=== PATIENT | female | born 1975 | race Caucasian/White ===

== ENCOUNTER 2016-06-19 13:08 | Emergency (ER) | payer OTHER ==
[2016-06-19 13:53] LABS: BASOPHIL 0.3 % (0-2); HCT 36.2 % (37.0-47.0); HGB 12.6 g/dl (12.5-16.0); LYMPHOCYTE 30.1 % (15-48); MCH 31.7 pg (25.0-31.0); MCHC 34.8 g/dL (32.0-36.0); MCV 91.2 fL (78.0-100.0); MONOCYTE 6.2 % (0-12); MPV 10.8 fL (6.0-9.5); NEUTROPHIL 62.4 % (41-80); PLT 229 K/uL (150-400); RBC 3.97 M/uL (4.20-5.40); RDW 12.6 % (11.5-14.0)
[2016-06-19 13:57] LABS: INR 1.04 (0.9-1.2); PROTHROMBIN TIME 13.2 SECONDS (11.7-14.0); PTT 27.2 SECONDS (23.2-31.4)
[2016-06-19 14:07] LABS: MYOGLOBIN 21 ng/mL (26-65); PRO-BNP 58 pg/mL (0-125); TROPONIN T < 0.010 ng/mL
[2016-06-19 14:10] LABS: ALBUMIN 4.4 g/dL (3.5-5.0); BILIRUBIN - TOTAL 0.3 mg/dL (0.1-1.0); CREATININE 0.6 mg/dL (0.5-1.0); GLOBULIN (CALCULATION) 2.7 g/dL (2.2-4.2); MAGNESIUM 2.04 mg/dL (1.40-2.10); POTASSIUM 3.8 mmol/L (3.5-5.1); TOTAL PROTEIN 7.1 g/dL (6.4-8.3)
== END 2016-06-19 17:24 | disposition home or self-care (01) ==
LOC: FER 13:08
PROVIDERS: Internal Medicine
DX: R07.89 Other chest pain (principal); M79.601 Pain in right arm; Z82.49 Family history of ischemic heart disease and other diseases of the circulatory system
CPT/HCPCS: 36415; 71010; 80053; 82550; 82553; 83735; 83874; 83880; 84443; 84484; 85025; 85610; 85730; 93005

== ENCOUNTER 2020-04-30 02:47 | Day surgery (SDCO) | payer OTHER ==
[2020-04-30 03:17] LABS: BASOPHIL 0.3 % (0-2); EOSINOPHIL 0 % (0-5); HGB 13.8 g/dl (12.5-16.0); LYMPHOCYTE 15.7 % (15-48); MCH 31.3 pg (25.0-31.0); MCHC 35.4 g/dL (32.0-36.0); MCV 88.4 fL (78.0-100.0); MONOCYTE 4.7 % (0-12); MPV 10.6 fL (6.0-9.5); NRBC 0; PLT 133 K/uL (150-400); RBC 4.41 M/uL (4.20-5.40); RDW 11.9 % (11.5-14.0); WBC 3.6 K/uL (4.0-10.5)
[2020-04-30 03:40] LABS: LACTIC ACID 0.8 mmol/L (0.4-1.9)
[2020-04-30 03:49] LABS: ALBUMIN 3.4 g/dL (3.4-5.0); BILIRUBIN - TOTAL 0.4 mg/dL (0.2-1.0); BUN/CREAT RATIO (CALC) 12.1 RATIO; C-REACTIVE PROTEIN 5.4 mg/dL (<=0.90); CREATININE 0.58 mg/dL (0.51-0.95); GLOBULIN (CALCULATION) 3.8 g/dL; POTASSIUM 3.3 mmol/L (3.5-5.1); TOTAL PROTEIN 7.2 g/dL (6.4-8.2)
[2020-04-30] MEDS ORDERED: ALLEGRA ALLERG180 MG PO (08:17)
--- NOTE | 2020-04-30 16:16 | NUR ---
PT LIVES WITH SPOUSE AND CHILDREN; REPORTS SHE IS INDEPENDENT WITH ADL'S . PLEASE ADVISE OF DISCHARGE NEEDS; PT IS AN OBSERVATION
[2020-05-01 03:45] LABS: BASOPHIL 0 % (0-2); EOSINOPHIL 0 % (0-5); HCT 34.1 % (37.0-47.0); HGB 11.8 g/dl (12.5-16.0); LYMPHOCYTE 13.8 % (15-48); MCH 31.2 pg (25.0-31.0); MCHC 34.6 g/dL (32.0-36.0); MCV 90.2 fL (78.0-100.0); MONOCYTE 5.4 % (0-12); MPV 10.4 fL (6.0-9.5); NEUTROPHIL 80.5 % (41-80); NRBC 0; PLT 138 K/uL (150-400); RBC 3.78 M/uL (4.20-5.40); WBC 7.4 K/uL (4.0-10.5)
[2020-05-01 04:14] LABS: ALBUMIN 2.6 g/dL (3.4-5.0); BILIRUBIN - TOTAL 0.2 mg/dL (0.2-1.0); BUN/CREAT RATIO (CALC) 11.6 RATIO; C-REACTIVE PROTEIN 3.5 mg/dL (<=0.90); CREATININE 0.43 mg/dL (0.51-0.95); GLOBULIN (CALCULATION) 3.4 g/dL; POTASSIUM 3.5 mmol/L (3.5-5.1)
[2020-05-02 04:34] LABS: BASOPHIL 0 % (0-2); EOSINOPHIL 0 % (0-5); HCT 32.6 % (37.0-47.0); HGB 11.2 g/dl (12.5-16.0); MCH 30.9 pg (25.0-31.0); MCHC 34.4 g/dL (32.0-36.0); MCV 90.1 fL (78.0-100.0); MONOCYTE 8.2 % (0-12); MPV 10.3 fL (6.0-9.5); NEUTROPHIL 75.6 % (41-80); NRBC 0; PLT 166 K/uL (150-400); RBC 3.62 M/uL (4.20-5.40); WBC 4.8 K/uL (4.0-10.5)
[2020-05-02 04:51] LABS: ALBUMIN 2.6 g/dL (3.4-5.0); BILIRUBIN - TOTAL 0.2 mg/dL (0.2-1.0); C-REACTIVE PROTEIN 6.1 mg/dL (<=0.90); CREATININE 0.4 mg/dL (0.51-0.95); GLOBULIN (CALCULATION) 3.5 g/dL; POTASSIUM 3.5 mmol/L (3.5-5.1); TOTAL PROTEIN 6.1 g/dL (6.4-8.2)
[2020-05-03 03:33] LABS: BASOPHIL 0 % (0-2); EOSINOPHIL 0 % (0-5); HCT 33.4 % (37.0-47.0); HGB 11.3 g/dl (12.5-16.0); LYMPHOCYTE 14.8 % (15-48); MCH 30.9 pg (25.0-31.0); MCHC 33.8 g/dL (32.0-36.0); MCV 91.3 fL (78.0-100.0); MONOCYTE 9.5 % (0-12); MPV 10.3 fL (6.0-9.5); NEUTROPHIL 75.5 % (41-80); NRBC 0; PLT 189 K/uL (150-400); RBC 3.66 M/uL (4.20-5.40); RDW 12.4 % (11.5-14.0)
[2020-05-03 03:35] LABS: WBC 4.3 K/uL (4.0-10.5)
[2020-05-03 03:59] LABS: ALBUMIN 2.7 g/dL (3.4-5.0); BILIRUBIN - TOTAL 0.3 mg/dL (0.2-1.0); C-REACTIVE PROTEIN 3.2 mg/dL (<=0.90); CREATININE 0.41 mg/dL (0.51-0.95); GLOBULIN (CALCULATION) 3.5 g/dL; POTASSIUM 3.4 mmol/L (3.5-5.1); TOTAL PROTEIN 6.2 g/dL (6.4-8.2)
[2020-05-03] MEDS ORDERED: PANTOPRAZOLE SO40 MG PO (10:33)
[2020-05-03] MEDS ORDERED: DECADRON6 MG PO (10:34)
[2020-05-03] MEDS ORDERED: VENTOLIN HFA IN18 GM INH (10:46)
== END 2020-05-03 11:32 | disposition home or self-care (01) ==
LOC: FER 02:47 → FMS 07:18
PROVIDERS: Emergency Medicine Emergency Medical Services; ADMIT Internal Medicine
DX: U07.1 COVID-19 (principal); J12.81 Pneumonia due to SARS-associated coronavirus; J30.2 Other seasonal allergic rhinitis; E86.0 Dehydration; Z90.710 Acquired absence of both cervix and uterus; Z88.1 Allergy status to other antibiotic agents
CPT/HCPCS: 36415; 36600; 71045; 71275; 80053; 82728; 82803; 83605; 83615; 84145; 84484; 85025; 85379; 86140; 87040; 93005; 94640; 94664; 96372; C9399; G0378; J0696; J1650; J1885; J2930; J7030; J7050; J8540; Q9967